=== PATIENT | male | born 1955 | race Hispanic/Latino ===

== ENCOUNTER → 2022-06-02 | Outpatient (CLI) | payer MEDICARE ==
[~2022-06-02] VITALS: Ht 172.7 cm; Wt 93.6 kg
[~2022-06-02] MED LIST: CEFAZOLIN SODIUM 2 GM VIAL IVPB SCH; [UNRECOGNIZED DRUG - OTHER] PO
[2022-06-02 10:03] LABS: EOSINOPHILS % (AUTO) 2.7 % (0.0-8.0); HEMATOCRIT 47.7 % (42-54); LYMPHOCYTES % (AUTO) 40.2 % (21.0-51.0); MEAN CORPUSCULAR HEMOGLOBIN 31.6 pg (27.0-33.0); MEAN CORPUSCULAR HGB CONC 33.8 g/dL (32.0-36.0); MEAN CORPUSCULAR VOLUME 93.5 fL (79-99); MONOCYTES % (AUTO) 10.9 % (3.0-13.0); PLATELET COUNT (AUTO) 165 K/uL (130-400); RED CELL DISTRIBUTION WIDTH 12.1 % (11.0-15.5); WHITE BLOOD COUNT (AUTO) 5.1 K/uL (4.8-10.8)
[2022-06-02 10:12] LABS: POTASSIUM 4.8 mmol/L (3.5-5.1)
[2022-06-02 10:33] VITALS: BP 159/84
== END | disposition home or self-care (01) ==
LOC: CANPREIN → DAH 10:00 → EDSTATUS 10:30
PROVIDERS: ATTEND Neurological Surgery
DX: Z01.818 Encounter for other preprocedural examination (principal); M43.16 Spondylolisthesis, lumbar region; M48.062 Spinal stenosis, lumbar region with neurogenic claudication; I70.0 Atherosclerosis of aorta; Z20.822 Contact with and (suspected) exposure to COVID-19
CPT/HCPCS: 71045; 87426; 80051; 85025; 36415; A6260

== ENCOUNTER 2022-07-21 12:00 | Observation (INO) | payer MEDICARE ==
[~2022-07-21] VITALS: Ht 172.7 cm; Wt 94.3 kg
[2022-07-21 12:13] LABS: CREATININE 0.8 mg/dL (0.5-1.5); POTASSIUM 4.6 mmol/L (3.5-5.1)
[2022-07-21 12:24] VITALS: BP 141/75
[2022-07-21] MEDS ORDERED: ACET-2743 PO (12:27)
[2022-07-21] MEDS ORDERED: TELM20TA8 PO (12:27)
[2022-07-21 12:29] LABS: BASOPHILS % (AUTO) 0.8 % (0.0-5.0); EOSINOPHILS % (AUTO) 1.6 % (0.0-8.0); HEMATOCRIT 45.9 % (42-54); LYMPHOCYTES % (AUTO) 38.7 % (21.0-51.0); MEAN CORPUSCULAR HEMOGLOBIN 32.2 pg (27.0-33.0); MEAN CORPUSCULAR HGB CONC 34.2 g/dL (32.0-36.0); MEAN CORPUSCULAR VOLUME 94.1 fL (79-99); MONOCYTES % (AUTO) 8.4 % (3.0-13.0); NEUTROPHILS % (AUTO) 50.2 % (40.0-77.0); PLATELET COUNT (AUTO) 172 K/uL (130-400); RED BLOOD CELL COUNT(AUTO) 4.88 MIL/uL (4.50-6.20); WHITE BLOOD COUNT (AUTO) 6.1 K/uL (4.8-10.8)
[2022-07-22] VITALS (25 sets, daily range): BP systolic 103–160; BP diastolic 56–88
[2022-07-22] MEDS ORDERED: LACTATED RINGERS 1000ML 1,000 ML IV ONE (06:39)
[2022-07-22] MEDS ORDERED: CEFAZOLIN SODIUM 2 GM VIAL ONE (06:39)
[2022-07-22] MEDS: BUPIVACAINE/EPI/PF 0.25% 30ML VIAL IJ SCH ×2 (07:30→09:37)
[2022-07-22] MEDS ORDERED: CEFAZOLIN SODIUM 1 GM VIAL ONE ×2 (08:34→13:46)
[2022-07-22] MEDS ORDERED: MORPHINE PF 100MG/10ML AMP IV ONE (08:35)
[2022-07-22] MEDS ORDERED: THROMBIN-JMI 20000 UNIT KIT TP ONE (08:36)
[2022-07-22] MEDS ORDERED: PROPOFOL 10 MG/ML 20ML VIAL IV ONE ×2 (08:46→13:17)
[2022-07-22] MEDS ORDERED: ONDANSETRON 4MG INJ ONE (08:46)
[2022-07-22] MEDS ORDERED: FENTANYL CITRATE PF 50 MCG/1 ML 2ML VIAL ONE ×4 (08:46→13:59)
[2022-07-22] MEDS ORDERED: MIDAZOLAM HCL 1 MG/ML 2ML VIAL ONE (08:47)
[2022-07-22] MEDS ORDERED: CEFAZOLIN SODIUM 2 GM VIAL IVPB ONE (09:05)
[2022-07-22] MEDS ORDERED: ROCURONIUM 10MG/1ML SYR 10 MG/ML ML ONE ×2 (09:06→09:33)
[2022-07-22] MEDS ORDERED: DEXAMETHASONE SOD PHOSPHATE 10MG/ML 1ML VIAL ONE (09:17)
[2022-07-22] MEDS ORDERED: MEPERIDINE-PF 25 MG/ML SYG ONE (09:33)
[2022-07-22] MEDS ORDERED: PROPOFOL 1000 MG/100 ML 100 ML IV ONE (09:50)
[2022-07-22] MEDS ORDERED: TRANEXAMIC ACID 1000MG/10ML ONE (09:58)
[2022-07-22] MEDS ORDERED: PHENYLEPHRINE HCL 10 MG/ML 1ML VIAL IV ONE (10:01)
[2022-07-22] MEDS ORDERED: [UNRECOGNIZED DRUG - OTHER] IJ ONE (11:30)
[2022-07-22] MEDS ORDERED: DESMOPRESSIN IJ ONE (11:30)
[2022-07-22] MEDS ORDERED: KETOROLAC 30MG VIAL (30MG/ML) ONE (13:53)
[2022-07-22] MEDS ORDERED: GLYCOPYRROLATE 1 MG/5 ML SYRINGE ONE (13:59)
[2022-07-22] MEDS ORDERED: NEOSTIGMINE 5MG/5ML SYR IV ONE (13:59)
[2022-07-22] MEDS ORDERED: PROMETHAZINE HCL 25 MG/ML 1ML AMPULE IM PRN (14:30)
[2022-07-22] MEDS ORDERED: LACTATED RINGERS 1000ML 1,000 ML IV SCH (14:30)
[2022-07-22] MEDS ORDERED: 0.9%NACL 10ML VIAL IVP PRN (14:30)
[2022-07-22] MEDS: DEXAMETHASONE SOD PHOSPHATE 4 MG/ML 1ML VIAL IVP SCH ×2 (14:30→20:24)
[2022-07-22] MEDS: CEFAZOLIN SODIUM 1 GM VIAL IVPB SCH ×2 (14:30→21:25)
[2022-07-22] MEDS ORDERED: ACETAMINOPHEN 500 MG TABLET PO PRN (14:30)
[2022-07-22] MEDS ORDERED: MORPHINE 2 MG SYG IVP PRN (14:30)
[2022-07-22] MEDS: HYDROCODONE/ACETAMINOPHEN 5/325 MG TAB PO PRN ×2 (16:56→21:25)
[2022-07-23] VITALS: BP 147/83
[2022-07-23] MEDS: DEXAMETHASONE SOD PHOSPHATE 4 MG/ML 1ML VIAL IVP SCH ×2 (02:55→08:50)
[2022-07-23 04:00] VITALS: BP 127/69
[2022-07-23 08:00] VITALS: BP 122/71
[2022-07-23] MEDS ORDERED: LOSARTAN 25 MG TABLET PO SCH (09:00)
[2022-07-23] MEDS: HYDROCODONE/ACETAMINOPHEN 5/325 MG TAB PO PRN (09:20)
== END 2022-07-23 11:30 | disposition home or self-care (01) ==
LOC: EDSTATUS 12:00 → DAHIP 07-22 05:58 → 4BH 07-22 15:45
PROVIDERS: ADMIT Neurological Surgery; ATTEND Neurological Surgery
DX: M48.061 Spinal stenosis, lumbar region without neurogenic claudication (principal); Z20.822 Contact with and (suspected) exposure to COVID-19; M43.17 Spondylolisthesis, lumbosacral region; Z79.899 Other long term (current) drug therapy; Z98.890 Other specified postprocedural states
CPT/HCPCS: 80048; 85025; 87426; 36415; 71045; 22633; 22840; 20930; 96365; 96375; 72110; 96376; A6260; G0378 ×19; A4663; J7120 ×2; A4344; J3010 ×4; J0690 ×5; J3490 ×3; J1100 ×4; J2710; J2597; J2250; J2704 ×3; J2274; J2405; J1885; J2175; J2370; A4649 ×3; C1776; A4215; A4223; A4222; A4221

== ENCOUNTER → 2022-08-18 | Outpatient (CLI) | payer MEDICARE ==
[~2022-08-18] MED LIST changes: +ACET-2743 PO; -CEFAZOLIN SODIUM 2 GM VIAL IVPB SCH; +TELM20TA8 PO; -[UNRECOGNIZED DRUG - OTHER] PO
== END | disposition home or self-care (01) ==
LOC: RAH 08:09
PROVIDERS: ATTEND Neurological Surgery
DX: M43.26 Fusion of spine, lumbar region (principal); Z98.1 Arthrodesis status
CPT/HCPCS: 72100